=== PATIENT | male | born 1960 | race Caucasian/White ===

== ENCOUNTER 2025-08-30 08:35 | Outpatient (REF) | payer OTHER, SELFPAY ==
[2025-08-30 10:31] LABS: Hematocrit 44.5 % (42.0-52.0); Hemoglobin 14.6 g/dl (14.0-18.0); Mean Corpuscular HGB Conc 32.8 g/dl (31.0-36.0); Mean Corpuscular Hemoglobin 29.3 pg (27.0-33.0); Mean Corpuscular Volume 89.4 fL (80.0-98.0); NRBC Abs Auto 0.000 X10*3/uL (0.0-0.012); NRBC Pct Auto 0.0 /100WBC (0.0-0.2); Platelet Count 266 X10*3/uL (160-400); Red Blood Count 4.98 X10*6/uL (4.60-5.80); White Blood Count 8.7 X10*3/uL (4.8-10.8)
[2025-08-30 11:24] LABS: HBS Num1 0.40 mIU/mL (0-7.99); HBc Num1 0.08 S/CO (0.00-0.79); HBsAGNum1 0.39 S/CO (0.00-0.99); HIV Num 1 0.06 S/CO (0.00-0.99); Hepatitis B Surface Antigen Negative (Negative); ~Hepatitis B Surface Antibody NONREACTIVE (Nonreactive)
[2025-08-30 11:25] LABS: ~HepC Num1 0.29 S/CO (0.00-0.79); ~Hepatitis C Antibody Nonreactive (Nonreactive)
[2025-08-30 11:59] LABS: Alanine Aminotransferase 91 U/L (0-40); Albumin Level 4.8 g/dL (3.5-5.0); Alkaline Phosphatase 72 U/L (39-117); Anion Gap 15 (12-20); Aspartate Amino Transferase 54 U/L (5-37); Blood Urea Nitrogen 22 mg/dL (9-16); Calcium 9.5 mg/dL (8.4-10.2); Carbon Dioxide 26 mmol/L (22-29); Chloride 106 mmol/L (96-108); Cholesterol 207 mg/dL (<200); Estimated Glomerular Filt Rate > 60; HDL Cholesterol 69 mg/dL (>40); Potassium 4.7 mmol/L (3.3-5.1); Sodium 142 mmol/L (135-145); Total Protein 7.2 g/dL (6.5-8.0); Triglycerides 92 mg/dL (<150)
== END 2025-08-30 08:36 | disposition home or self-care (01) ==
LOC: HO.LAB 08:35
PROVIDERS: PCP Internal Medicine; Visit Provider Internal Medicine
DX: Z00.00 Encounter for general adult medical examination without abnormal findings (principal); F10.90 Alcohol use, unspecified, uncomplicated; I10 Essential (primary) hypertension; Z23 Encounter for immunization; Z13.1 Encounter for screening for diabetes mellitus; Z87.891 Personal history of nicotine dependence
CPT/HCPCS: 36415; 80053; 80061; 82306; 83036; 84443; 85027; 86704; 86706; 86803; 87340; 87389; 90471; 90472; 90677; 90715; 96127

== ENCOUNTER 2025-08-30 08:35 | Outpatient (AMB) | payer OTHER, SELFPAY ==
--- NOTE | 2025-08-30 08:51 | MHC.PC.OV ---
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 Transferring care from . Medical records have been requested and have not received. Oncology Physician Required: No Post Partum Nurse: Not Required per policy Accompanied by: Self / Same As Patient Allergies No Known Allergies Allergy (Verified 08/30/25 09:01) Medication List - Last Reconciled 08/30/25 by Astrid Payne MD No Known Home Meds Tobacco use date assessed: 08/30/25 Dental Screening Dental Screen Date: 08/30/25 Did you have a dental visit in the last 12 months?: No Did you have a dental problem in the last 6 months where you did not have access to dental care?: No Was dental information given to patient?: No HPI HPI Comments History of Present Illness Details The patient is a 65-year-old male presenting to establish care as a new patient. He has not seen a physician since 2018, at which time he underwent a hernia operation and a colonoscopy. He reports difficulty maintaining consistent medical care due to frequent changes in his health insurance. His last colonoscopy was in July 2018, which revealed one noncancerous polyp. He was advised to have a repeat screening in five years, making him overdue. 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 He has previously declined removal due to [id number]-ughjog costs and the possibility of recurrence. He denies any personal history of heart problems, kidney problems, heart attacks, or stroke. His family history is notable for a brother who may have had a heart attack. He is on no medications. The patient is a former smoker, having quit over 25 years ago. He reports drinking alcohol approximately four times a week, with about two drinks per day on average and three to four drinks on a typical weekend day. [facility] Surgical History (Updated 08/30/25 @ 09:02 by DELROY Ahumada) History of hernia surgery Social History (Updated 08/30/25 @ 09:03 by ASHLEY Ahumada Housing: House Alcohol intake: current Alcohol intake frequency: a few times a week Patient Tobacco Use Status: Former Tobacco user e-Cigarette/Vaping Use: Never Used Second Hand Smoke Exposure: Yes service: No Current occupational status: employed Current occupation: [employer] Cognitive needs: No Hearing needs: No Vision needs: Yes (Reading Glasses) Questionnaire PHQ-9 Over the last 2 weeks, how often have you been bothered by any of the following problems? 1. Little interest or pleasure in doing things: not at all 2. Feeling down, depressed, or hopeless: not at all 3. Trouble falling or staying asleep, or sleeping too much: not at all 4. Feeling tired or having little energy: not at all 5. Poor appetite or overeating: not at all 6. Feeling bad about yourself - or that you are a failure or have let yourself or your family down: not at all 7. Trouble concentrating on things, such as reading the newspaper or watching television: not at all 8. Moving or speaking so slowly that other people could have noticed. Or the opposite - being so fidgety or restless that you have been moving around a lot more than usual: not at all 9. Thoughts that you would be better off or of hurting yourself in some way: not at all Total score: 0 Depression Screening Interpretation: Negative Depression Screening Done: Yes Source: Developed by Drs. Gumaro Musa, Gabriella John, Trenton Nash and colleagues, with an educational orion from [employer]. Thrive Questionnaire Date Thrive assessed: 08/28/25 I am a: Patient What is your living situation today?: I have a steady place to live Within the past 12 months, did the food you bought not last and you didn't have the money to get more?: I choose not to answer this question Within the past 12 months, did you worry whether your food would run out before you got money to buy more?: I choose not to answer this question Do you have trouble paying for medicines?: I choose not to answer this question Do you have trouble getting transportation to medical appointments?: I choose not to answer this question Do you have trouble paying your heating and electricity bill?: I choose not to answer this question Do you have trouble taking care of your child, family member or friend?: I choose not to answer this question Do you have trouble with day-to-day activities such as bathing, preparing meals, shopping, managing finances, etc.?: No Are you currently unemployed and looking for a job?: No Are you interested in more education?: No Please select the resources that you would like help with: None Currently or been in a relationship where the following occur: No concerns reported THRIVE Score: 0 AUDIT C Alcohol Use Questionnaire (AUDIT-C) 1. How often do you have a drink containing alcohol?: 4 or more times a week 2. How many drinks containing alcohol do you have on a typical day when you are drinking?: 3 or 4 3. How often do you have six or more drinks on one occasion?: Monthly Total Score: 7 CUONG-7 AMB Questionnaire CUONG-7 Date CUONG - 7 assessed: 08/30/25 Feeling nervous, anxious, or on edge: 0 = Not at all Not being able to stop or control worryin = Not at all Worrying too much about different things: 0 = Not at all Trouble relaxin = Not at all Being so restless that it is hard to sit still: 0 = Not at all Becoming easily annoyed or irritable: 0 = Not at all Feeling afraid as if something awful might happen: 0 = Not at all Total CUONG-7 score (0-4 normal; 5-9 mild; 10-14 moderate; 15-21 severe): 0 Source: Developed by Drs. Gumaro Musa, Gabriella John, Trenton Nash and colleagues, with an educational orion from [employer]. Physical exam (Primary Care) Vital Signs: Last Vital Signs Temp 97.1 F 08/30/25 08:55 Pulse 78 08/30/25 08:55 BP 140/82 H 08/30/25 08:55 Pulse Ox 97 08/30/25 08:55 Oxygen Delivery Method Room Air 08/30/25 08:55 BMI result Body Mass Index 28.8 Tobacco/Smoking Status: Tobacco use Status Tobacco use date assessed 08/30/25 08/30/25 09:04 Patient Tobacco Use Status Former Tobacco user 08/30/25 09:04 e-Cigarette/Vaping Use Never Used 08/30/25 09:04 PHQ-9: PHQ-9 Score PHQ-9: Total score 0 08/30/25 09:08 Depression Screening Interpretation: Negative Thrive Assessment: Date of Thrive Assessment Date Thrive assessed 08/28/25 08/30/25 08:53 Currently or been in a relationship where the following occur: No concerns reported Const Other: Pertinent findings are in BOLD GENERAL APPEARANCE NAD, activity normal for age, well developed/ well nourished, no cyanosis, pallor, or diaphoresis. EYES lids/conjunctiva normal. EARS/NOSE/THROAT Mucous membranes moist, nares normal, lips/teeth normal uvula midline without oral pharyngeal erythema, exudate or swelling TMs normal bilaterally. No lymphangitis/lymphedema. HEAD/NECK normocephalic atraumatic, no facial trauma, neck is supple. RESPIRATORY respiratory effort normal, speaks in full sentences, no tripod position, no accessory muscle use. Lungs clear to auscultation without rhonchi, wheezes, rales CARDIAC Regular rate and rhythm, no edema. ABDOMINAL Soft, ND/NT. No evidence of fluid wave. No pulsatile masses on exam, rebound tenderness, Blanc sign or pain over Mcburney's point. MUSCLES/EXTREMITIES No abnormal range of motion, no swelling. Bilateral varicose veins. No edema. SKIN Warm, pink and dry. No rashes, dermatoses, petechiae or lesions. Scalp lipoma. NEUROLOGICAL Speech is clear and appropriate. Normal level of consciousness. Gait and coordination are normal. 5/5 strength in all extremities. PSYCH Normal mood and affect. Judgement/competence is appropriate Immunizations pneumoc 20-rosanna conj-dip cr(PF) 0.5 mL IM syringe Performing Provider: Astrid Payne MD [place] [facility] [place] [facility] Administered by: Nicolasa Sanchez LPN on 08/30/25 09:37 Dose Route Admin Location Dispensed Lot Number Expiration Date [facility] Health And Safety Manager 0.5 mL IM Left Deltoid 0.5 mL [id number] 09/03/26 6569-4818-17 [employer] Total Dispensed Waste 0.5 mL 0 % VIS Given Date VIS Provided VIS Publication Date 08/30/25 Single Vaccine 25 Eligibility Eligibility Date Funding Source Not [facility] Eligible 08/30/25 Private Boostrix Tdap 2.5 Lf unit-8 mcg-5 Lf/0.5 mL intramuscular syringe Performing Provider: Astrid Payne MD [place] [facility] [place] Administered by: Nicolasa Sanchez LPN on 08/30/25 09:37 Dose Route Admin Location Dispensed Lot Number Expiration Date [employer] Health And Safety Manager 0.5 mL IM Left Deltoid 0.5 mL [id number] 01/29/28 84304-013-42 [employer] Total Dispensed Waste 0.5 mL 0 % VIS Given Date VIS Provided VIS Publication Date 08/30/25 Single Vaccine 21 Eligibility Eligibility Date Funding Source Not [facility] Eligible 08/30/25 Private Coding Level of Care Code New Pt Level 4 (55803) New Pt Prev Care 40-64y(49684) Diagnoses Healthcare maintenance Z00.00 Alcohol use disorder F10.90 Primary hypertension I10 Hypertension type: primary hypertension History of smoking Z87.891 Time Spent (min) 40 Assessment & Plan Assessment & Plan (1) Healthcare maintenance: Code(s): Z00.00 - Encounter for general adult medical examination without abnormal findings Category: Medical Plan: CBC, CMP, Lipid panel, A1C, TSH w T4, vit D. ordered. Shingles 2 doses when >50 yo. Had one shot last Dec. Getting it from [facility]. COVID: two doses. Done in the past. Pneumococcal: Ordered. Flu vaccine: Declined. Tdap: every 10 years. Today. Colonoscopy: 45-75. 07/2018. 1 polyp. was told to repeat it in 5 years. Ordered today. AAA: 65 -75. Ordered today. CT lun - 80. Stopped smoking 25 years ago. PSA: 50 -70 every two years. HIV: Ordered today. HBV: Ordered today. HCV: Ordered today. (2) Alcohol use disorder: Code(s): F10.90 - Alcohol use, unspecified, uncomplicated Category: Medical Plan: Advised the patient to maintain 2 or less drinks per day. Advised patient to let us know in case he is using alcohol to help with anxiety or other stressors in life. Advised patient to seek help in case he wants to stop drinking so we can assist him. (3) HTN (hypertension): Code(s): I10 - Essential (primary) hypertension Category: Medical Qualifiers: Hypertension type: primary hypertension Qualified Code(s): I10 - Essential (primary) hypertension Plan: Advised on lifestyle modifications including reducing slat and DASH diet. We will monitor and re-assess during next visit. Goal BP is <140/90. (4) History of smoking: Code(s): Z87.891 - Personal history of nicotine dependence Category: Social Hx Plan: AAA US ordered. Orders: Orders TDaP Immunization Today Z23 - Encounter for immunization Complete Blood Count no Diff Today Z00.00 - Encounter for general adult medical examination without abnormal findings Comprehensive Met. Panel Today Z00.00 - Encounter for general adult medical examination without abnormal findings Hemoglobin A1c Today Z00.00 - Encounter for general adult medical examination without abnormal findings Lipid Panel Today Z00.00 - Encounter for general adult medical examination without abnormal findings TSH reflex Free T4 Today Z00.00 - Encounter for general adult medical examination without abnormal findings HIV Ab/Ag Today Z00.00 - Encounter for general adult medical examination without abnormal findings Hepatitis B Surface Antigen Today Z00.00 - Encounter for general adult medical examination without abnormal findings Hepatitis B Surface Antibody Today Z00.00 - Encounter for general adult medical examination without abnormal findings Hepatitis B Core Antibody Today Z00.00 - Encounter for general adult medical examination without abnormal findings US abdominal aortic aneurysm Today Z87.891 - Personal history of nicotine dependence Pneumococcal 20 Immunization Today Z23 - Encounter for immunization Vitamin D 25-OH Total Today Z00.00 - Encounter for general adult medical examination without abnormal findings Hepatitis C Antibody Reflex Today Z00.00 - Encounter for general adult medical examination without abnormal findings Referrals Open Access Screening Colonoscopy Referral Z12.11 - Encounter for screening for malignant neoplasm of colon, Z12.12 - Encounter for screening for malignant neoplasm of rectum
[2025-08-30 08:55] VITALS: BP 140/82; PULSE 78; TEMP 36.2; O2SAT 97; BMI 28.8
== END 2025-08-30 09:40 | disposition home or self-care (01) ==
LOC: HO.HMCH 08:38
PROVIDERS: PCP Internal Medicine; Visit Provider Internal Medicine
DX: Z00.00 Encounter for general adult medical examination without abnormal findings (principal); F10.90 Alcohol use, unspecified, uncomplicated; I10 Essential (primary) hypertension; Z87.891 Personal history of nicotine dependence; Z23 Encounter for immunization